=== PATIENT | male | born 1955 | race Caucasian/White ===

== ENCOUNTER 2025-06-13 15:24 | Outpatient (REF) | payer MEDICARE, SELFPAY ==
[2025-06-13 16:20] LABS: Hemoglobin A1C 5.4 % (<5.7)
[2025-06-13 17:00] LABS: ALT 11 U/L (16-63); AST 11 U/L (15-37); Albumin 3.2 g/dL (3.4-5.0); Alkaline Phosphatase 102 U/L (46-116); Anion Gap 6.8 mmol/L (3-11); BUN 21 mg/dL (7-18); Bilirubin, Total 0.6 mg/dL (0.2-1.0); CO2 30.2 mmol/L (21.0-32.0); Calcium 9.8 mg/dL (8.5-10.1); Calculated LDL 82 mg/dL (<100); Chloride 103 mmol/L (98-107); Cholesterol 139 mg/dL (<200); Estimated GFR 46.64 (mL/min/1.73m2); Glucose 119 mg/dL (74-106); HDL Cholesterol 46 mg/dL (>or=40); Potassium 4.4 mmol/L (3.5-5.1); Sodium 140 mmol/L (136-145); Total Protein 8.1 g/dL (6.4-8.2); Triglyceride 57 mg/dL (<150)
== END 2025-06-13 15:25 | disposition home or self-care (01) ==
LOC: NCHCN 15:24
PROVIDERS: PCP Physician Assistant; Visit Provider Physician Assistant
DX: E11.40 Type 2 diabetes mellitus with diabetic neuropathy, unspecified (principal)
CPT/HCPCS: 80053; 80061; 83036

== ENCOUNTER 2025-07-05 15:32 | Outpatient (REF) | payer MEDICARE, SELFPAY ==
[2025-07-05 15:40] LABS: ALT 10 U/L (16-63); AST 14 U/L (15-37); Albumin 3.4 g/dL (3.4-5.0); Alkaline Phosphatase 100 U/L (46-116); Anion Gap 4.0 mmol/L (3-11); BUN 21 mg/dL (7-18); Bilirubin, Total 0.5 mg/dL (0.2-1.0); CO2 31.0 mmol/L (21.0-32.0); Calcium 9.4 mg/dL (8.5-10.1); Chloride 104 mmol/L (98-107); Estimated GFR 59.84 (mL/min/1.73m2); Glucose 112 mg/dL (74-106); Potassium 4.2 mmol/L (3.5-5.1); Sodium 139 mmol/L (136-145); TSH 1.86 uIU/mL (0.36-3.74); Total Protein 8.0 g/dL (6.4-8.2)
[2025-07-05 16:57] LABS: COMMENT (LAB VIEW ONLY) 61.47 mg/dL; Microalb ug/mg Crea 25.5 ug/mg Cr
[2025-07-05 23:01] LABS: T3,Free 4.2 pg/mL (2.8-5.3)
== END 2025-07-05 15:33 | disposition home or self-care (01) ==
LOC: NCHCN 15:32
PROVIDERS: PCP Physician Assistant; Visit Provider Physician Assistant
DX: E03.9 Hypothyroidism, unspecified (principal); B40.7 Disseminated blastomycosis
CPT/HCPCS: 80053; 82043; 82570; 84439; 84443; 84481